=== PATIENT | male | born 1940 | race Caucasian/White ===

== ENCOUNTER 2016-05-15 12:33 | Emergency (ER) | payer OTHER ==
[2016-05-15 13:50] LABS: BASOPHILS % 0.3 (0.0-1.5); EOSINOPHILS % 0.9 % (0.0-6.8); LYMPHOCYTES # 0.4 # k/uL (0.6-4.0); MEAN CORPUSCULAR HEMOGLOBIN 31.7 pg (28.0-34.0); MONOCYTES # 0.6 # k/uL (0.0-0.9); MONOCYTES % 6.3 % (0.0-11.0); NEUTROPHILS # 7.6 # k/uL (1.4-7.7)
[2016-05-15 14:47] LABS: APPEARANCE,URINE Clear (CLEAR); COLOR,URINE Yellow (YELLOW); OCCULT BLOOD,URINE Negative (NEGATIVE); PH URINE 6.5 (5.0 - 8.0); UROBILINOGEN URINE 0.2 Eu (0.2-1.0)
[2016-05-15 14:51] LABS: SPERM,URINE PRESENT (NEGATIVE)
[2016-05-15] MEDS ORDERED: 0.9 % SODIUM CHLORIDE 1,000 ML IV SCH (15:00)
[2016-05-15] MEDS ORDERED: 0.9 % SODIUM CHLORIDE 1,000 ML IV ONE (15:03)
[2016-05-15 16:37] VITALS: BP 144/86
--- NOTE | 2016-05-16 00:26 | Diagnostic Imaging Report ---
[facility] [address] [facility].[address] [address] ~ ~ ~ ~ Report Submission Date: May 15, 2016 2:14:22 PM PORTFOLIO SPECIALIST Patient ~ Study Name: KRISTAL ROUSSEAU ~ Date: May 15, 2016 1:49:26 PM PORTFOLIO SPECIALIST ~ Modality Type: CR Gender: M ~ Description: CHEST : 39 ~ Institution: [facility] Physician: LENIN BLANTON ~ ~ ~ ~ Chest - one-view Clinical history: ~Weakness about 3 days. Findings: ~Examination of the chest in single portable AP view 05/15/2016 1349 hours with comparison to examination of 08/20/2014 demonstrates the lungs to be clear. ~Cardiac silhouette is prominent and the aorta is atherosclerotic. ~ Monitor leads superimpose the chest. Impression: 1. ~Cardiomegaly and aortic atherosclerosis. 2. ~No active disease. ~ Electronically signed on May 15, 2016 2:14:22 PM PORTFOLIO SPECIALIST by: Silverio EMANUEL
--- NOTE | 2016-05-16 00:27 | Diagnostic Imaging Report ---
[facility] [address] [facility].[address] [place] [address]. [address] ~ ~ ~ ~ Report Submission Date: May 15, 2016 2:15:42 PM SALES COMPENSATION ANALYST Patient ~ Study Name: KRISTAL ROUSSEAU ~ Date: May 15, 2016 1:41:11 PM SALES COMPENSATION ANALYST ~ Modality Type: CT\SR Gender: M ~ Description: CT BRAIN W/O CONTRAST : 39 ~ Institution: [facility] Physician: LENIN BLANTON ~ ~ ~ ~ Head CT without contrast Clinical history: ~Vertigo and weakness for 3 days. Technique: ~CT examination of the brain is performed in contiguous axial slices without the use of contrast. ~Sagittal and coronal reconstructions are performed by the technologist. Findings: ~The fourth ventricle lies in a normal midline position. ~The ventricles and sulci are prominent secondary to atrophy. ~Chronic ischemic changes are present in the periventricular regions. ~Intracranial atherosclerosis is demonstrated. ~Visualized paranasal sinuses and mastoid air cells are clear. Impression: 1. ~Atrophy and chronic small vessel ischemic changes. 2. ~No acute intracranial changes. ~ Electronically signed on May 15, 2016 2:15:42 PM SALES COMPENSATION ANALYST by: Silverio EMANUEL
--- NOTE | 2016-05-16 05:21 | ED Physician Documentation ---
General Adult - HISTORIAN Historian: patient - HPI Stated Complaint: Not feeling good Chief Complaint: General Adult Additional Information: weakness, falling Onset: days ago (3) Timing: still present Severity: moderate Modifying Factors: recently stopped metoprolol, no help Further Comments: no - ROS CONST: weakness EYES/ENT: none CVS/RESP: none GI/: none MS/SKIN/LYMPH: none NEURO/PSYCH: other (falling) - PAST HX Past History: other (depression, hypertension) Other History: diabetes Type 2, other (cad) Surgeries/Procedures: none Immunizations: UTD Allergies/Adverse Reactions: Allergies Allergy/AdvReac Type Severity Reaction Status Date / Time No Known Drug Allergies Allergy Verified 05/15/16 13:05 Home Medications: Ambulatory Orders Medication Instructions Recorded Azithromycin [Azithromycin] 1 tab PO QDAY 05/15/16 Citalopram Hydrobromide 1 tab PO BID 05/15/16 [Citalopram HBr] Mecobalamin [B-12] 1 tab PO QDAY 05/15/16 - SOCIAL HX Smoking History: non-smoker Alcohol Use: none Drug Use: none - FAMILY HX Family History: No - VITAL SIGNS Vital Signs: Vital Signs Temp Pulse Resp BP Pulse Ox 98.6 F 88 18 144/86 98 05/15/16 12:33 05/15/16 16:34 05/15/16 16:34 05/15/16 16:34 05/15/16 16:34 - REVIEWED ASSESSMENTS Nursing Assessment Reviewed: Yes Vitals Reviewed: Yes Progress - Results/Orders Results/Orders: ct head, cxr, ua, trop, gnp, flu a and b, cmp, cbc, strep, ekg and chem stick ordered - Progress Progress: pt. given 1 liter NS which causes sig. improvement in stremgth and bp Critical Care Note - Critical Care Note Total Time (mins): 0 ED Results Lab/Radiology - Lab Results Lab Results: Lab Results 05/15/16 05/15/16 05/15/16 14:45 14:40 14:05 WBC RBC Hgb Hct MCV MCH MCHC RDW Plt Count Neut % (Auto) Lymph % (Auto) [place] % (Auto) Eos % (Auto) Baso % (Auto) Neut # Lymph # [place] # Eos # Baso # Reactive Lymphs % Reactive Lymphs # Sodium Potassium Chloride Carbon Dioxide BUN Creatinine Estimated Creat Clear Est GFR ( Amer) Est GFR (Non-Af Amer) Glucose Calcium Total Bilirubin AST ALT Alkaline Phosphatase Troponin I NT-Pro-B Natriuret Pep Total Protein Albumin Urine Color Yellow (YELLOW) Urine Appearance Clear (CLEAR) Urine pH 6.5 (5.0 - 8.0) Ur Specific [place] 1.025 (1.010-1.030) Urine Protein 2+ mg/dL H mg/dL (NEGATIVE) Urine Ketones Trace mg/dL mg/dL (NEGATIVE) Urine Occult Blood Negative (NEGATIVE) Urine Nitrite Negative (NEGATIVE) Urine Bilirubin Negative (NEGATIVE) Urine Urobilinogen 0.2 Eu Eu (0.2-1.0) Ur Leukocyte Esterase Negative (NEGATIVE) Urine RBC 0-2 (0-2 HPF) Urine WBC 2-5 (0-5 HPF) Urine Bacteria Few H (NEGATIVE) Urine Sperm Present H (NEGATIVE) Urine Glucose Negative mg/dL mg/dL (NEGATIVE) Influenza Type A Ag Negative (NEGATIVE) Influenza Type B Ag Negative (NEGATIVE) Group A Strep Screen Negative (NEGATIVE) 05/15/16 05/15/16 05/15/16 13:45 13:45 13:45 WBC 8.70 K/ul K/ul (4.00-12.00) RBC 4.16 M/ul M/ul (3.90-5.20) Hgb 13.2 g/dL g/dL (12.0-18.0) Hct 38.9 % % (37.0-53.0) MCV 93.5 fl fl (80.0-100.0) MCH 31.7 pg pg (28.0-34.0) MCHC 33.9 g/dL g/dL (30.0-36.0) RDW 13.0 % % (11.3-14.3) Plt Count 229 K/mm3 K/mm3 (130-400) Neut % (Auto) 86.7 % H % (39.0-79.0) Lymph % (Auto) 4.8 % L % (16.0-50.0) [place] % (Auto) 6.3 % % (0.0-11.0) Eos % (Auto) 0.9 % % (0.0-6.8) Baso % (Auto) 0.3 (0.0-1.5) Neut # 7.6 # k/uL # k/uL (1.4-7.7) Lymph # 0.4 # k/uL L # k/uL (0.6-4.0) [place] # 0.6 # k/uL # k/uL (0.0-0.9) Eos # 0.1 # k/uL # k/uL (0.0-0.6) Baso # 0.0 # k/uL # k/uL (0.0-0.5) Reactive Lymphs % 0.9 % % (0.0-5.0) Reactive Lymphs # 0.1 # k/uL # k/uL (0.0-0.8) Sodium 130 mmol/L L mmol/L (136-145) Potassium 4.9 mmol/L mmol/L (3.5-5.0) Chloride 93 mmol/L L mmol/L (98-110) Carbon Dioxide 27 mmol/L mmol/L (20-32) BUN 29 mg/dL H mg/dL (10-26) Creatinine 1.6 mg/dL H mg/dL (0.4-1.5) Estimated Creat Clear 50 Est GFR ( Amer) 54 L (60 - ) Est GFR (Non-Af Amer) 45 L (60 - ) Glucose 225 mg/dL H mg/dL (70-99) Calcium 9.9 mg/dL mg/dL (8.5-10.5) Total Bilirubin 0.6 mg/dL mg/dL (0.2-1.2) AST 21 U/L U/L (0-41) ALT 18 U/L U/L (0-45) Alkaline Phosphatase 78 U/L U/L (46-116) Troponin I < 0.03 ng/mL ng/mL (0.00-0.06) NT-Pro-B Natriuret Pep 2396.1 pg/mL H pg/mL (15.0-450.0) Total Protein 7.6 g/dL g/dL (6.0-8.5) Albumin 4.5 g/dL g/dL (3.0-5.5) Urine Color Urine Appearance Urine pH Ur Specific [place] Urine Protein Urine Ketones Urine Occult Blood Urine Nitrite Urine Bilirubin Urine Urobilinogen Ur Leukocyte Esterase Urine RBC Urine WBC Urine Bacteria Urine Sperm Urine Glucose Influenza Type A Ag Influenza Type B Ag Group A Strep Screen - Radiology Radiology Impressions: ct brain neg, cxr neg - Orders Orders: ED Orders Category Date Time Status CHEST 1 VIEW [RAD] Routine Exams 05/15/[address] BRAIN W/O CONTRAST Stat Exams 05/15/16 Completed CBC/PLATELET/DIFF Routine Lab 05/15/16 13:45 Completed CMP Routine Lab 05/15/16 13:45 Completed GRP A STREP SCREEN Routine Lab 05/15/16 14:05 Completed INFLUENZA A&B Routine Lab 05/15/16 14:40 Completed NT-proBNP Routine Lab 05/15/16 13:45 Completed THROAT CULTURE Routine Lab 05/15/16 14:05 Received TROPONIN I (cTnI) Routine Lab 05/15/16 13:45 Completed URINALYSIS Routine Lab 05/15/16 14:45 Completed 0.9 % Sodium Chloride [Normal Saline] 1,000 ml Med 05/15/16 15:00 Discontinued IV .Q1H 0.9 % Sodium Chloride [Normal Saline] 1,000 ml Med 05/15/16 15:03 Discontinued IV .STK-MED Chem Sticks Med 05/15/16 14:00 Discontinued 1 each CHEMQ EKG WITH COMPARISON Routine Ther 05/15/16 Ordered General Adult Physical Exam - PHYSICAL EXAM GENERAL APPEARANCE: no distress EENT: eye inspection normal, ENT inspection normal, pharynx normal, no signs of dehydration, MARGO, no nystagmus, TM's nml NECK: normal inspection, thyroid normal, supple RESPIRATORY: no resp distress, chest non-tender, breath sounds normal CVS: reg rate & rhythm, heart sounds normal, equal pulses, no murmur, no gallop , PMI nml, no JVD, no friction rub ABDOMEN: soft, no organomegaly, normal bowel sounds, no abdominal bruit, no distension, non-tender BACK: normal inspection, no CVA tenderness SKIN: warm/dry, normal color EXTREMITIES: non-tender, normal range of motion, no evidence of injury, no edema NEURO: oriented X3, CN's nml as tested, motor nml, sensation nml, mood/affect nml, cognition normal Discharge Clincal Impression: Dehydration Referrals: Abraham Lowery MD [Primary Care Provider] - 2 Days Home Medications: Ambulatory Orders Azithromycin [Azithromycin] 1 tab PO QDAY 05/15/16 Citalopram Hydrobromide [Citalopram HBr] 1 tab PO BID 05/15/16 Mecobalamin [B-12] 1 tab PO QDAY 05/15/16 Comments: discharged with recommendation for increasing fluids Condition: Stable Disposition: 01 HOME, SELF-CARE Decision to Admit: NO Decision Time: 16:25
== END 2016-05-15 16:34 | disposition home or self-care (01) ==
LOC: ED 12:33
DX: E86.0 Dehydration (principal)
CPT/HCPCS: 70450; 71010; 80053; 81002; 83880; 84484; 85025; 87070; 87400; 87880; J7030; 96360; 96361; 99283; S1016

== ENCOUNTER 2016-05-16 12:39 | Emergency (ER) | payer OTHER ==
[2016-05-16] MEDS ORDERED: ASPIRIN 81 MG CHEW TAB PO ONE (12:56)
[2016-05-16] MEDS ORDERED: ATROPINE SULFATE 0.1 MG/ML DISP.SYRIN ONE (12:58)
[2016-05-16] MEDS ORDERED: 0.9 % SODIUM CHLORIDE 1,000 ML IV ONE (12:58)
[2016-05-16 13:15] LABS: BASOPHILS % 0.4 (0.0-1.5); EOSINOPHILS % 2.8 % (0.0-6.8); MEAN CORPUSCULAR HEMOGLOBIN 32.6 pg (28.0-34.0); MONOCYTES # 0.9 # k/uL (0.0-0.9); NEUTROPHILS # 5.3 # k/uL (1.4-7.7)
--- NOTE | 2016-05-16 13:16 | ED Physician Documentation ---
Syncope/Near Syncope - HISTORIAN Historian: patient, friend - HPI Stated Complaint: Syncopal Episodes Chief Complaint: Syncope Location of Injury: head Further Comments: yes (75 year old male patient presents with complaints of "passing out", states he fell twice yesterday and twice this morning. Patient was seen in ER yesterday for complaints of weakness and not feeling well. Reports taking a 25mg tab of metoprolol this morning. Patient reports changes in his metoprolol doses over the past few months. He is unsure what he is suppose to take. Patient denies SOB or chest pain) - ROS CONST: recent illness EYES/ENT: none GI/: denies: diarrhea, black stools, problems urinating - PAST HX Cardiac Disease: CAD, A-Fib (cardioversion August 2013) PE Risk Factors: hypertension Other History: diabetes Type 2 Allergies/Adverse Reactions: Allergies Allergy/AdvReac Type Severity Reaction Status Date / Time No Known Drug Allergies Allergy Verified 05/15/16 13:05 Home Medications: Ambulatory Orders Medication Instructions Recorded Azithromycin [Azithromycin] 1 tab PO QDAY 05/15/16 Citalopram Hydrobromide 1 tab PO BID 05/15/16 [Citalopram HBr] Mecobalamin [B-12] 1 tab PO QDAY 05/15/16 - SOCIAL HX Smoking History: non-smoker - FAMILY HX Family History: denies: none - VITAL SIGNS Vital Signs: Vital Signs Temp Pulse Resp BP Pulse Ox 98 F 102 H 24 130/74 99 05/16/16 12:40 05/16/16 12:55 05/16/16 12:40 05/16/16 12:40 05/16/16 12:55 - REVIEWED ASSESSMENTS Nursing Assessment Reviewed: Yes Vitals Reviewed: Yes Progress - Progress Progress: On arrival - Patient placed on pacing pads, atropine at bedside. No LOC with pauses or bradycardia. No helicopter transport available due to icy weather. Patient transported with pacing pads and atropine. VS stable at transport. - EKG/XRAY/CT EKG: rhythm (ST, 1 degree AV block, rate 102, not acute changes) XRAY: chest (no infiltrate, pulmonary vascular congestion noted, cardiomegaly) - Consult/PCP Time Called: 13:30 (spoke with Mike) Consult/PCP: [address] Savage - Additional EKG/XRAY/Consults EKG #2: rhythm (SB into Junctional vs Afib, no ST changes. ) ED Results Lab/Radiology - Lab Results Lab Results: Lab Results 05/16/16 05/16/16 05/16/16 12:59 12:59 12:59 WBC 7.60 K/ul K/ul (4.00-12.00) RBC 4.34 M/ul M/ul (3.90-5.20) Hgb 14.1 g/dL g/dL (12.0-18.0) Hct 40.6 % % (37.0-53.0) MCV 93.5 fl fl (80.0-100.0) MCH 32.6 pg pg (28.0-34.0) MCHC 34.8 g/dL g/dL (30.0-36.0) RDW 13.0 % % (11.3-14.3) Plt Count 235 K/mm3 K/mm3 (130-400) Neut % (Auto) 70.0 % % (39.0-79.0) Lymph % (Auto) 13.1 % L % (16.0-50.0) [place] % (Auto) 12.0 % H % (0.0-11.0) Eos % (Auto) 2.8 % % (0.0-6.8) Baso % (Auto) 0.4 (0.0-1.5) Neut # 5.3 # k/uL # k/uL (1.4-7.7) Lymph # 1.0 # k/uL # k/uL (0.6-4.0) [place] # 0.9 # k/uL # k/uL (0.0-0.9) Eos # 0.2 # k/uL # k/uL (0.0-0.6) Baso # 0.0 # k/uL # k/uL (0.0-0.5) Reactive Lymphs % 1.7 % % (0.0-5.0) Reactive Lymphs # 0.1 # k/uL # k/uL (0.0-0.8) Sodium 136 mmol/L mmol/L (136-145) Potassium 4.3 mmol/L mmol/L (3.5-5.0) Chloride 106 mmol/L mmol/L (98-110) Carbon Dioxide 24 mmol/L mmol/L (20-32) BUN 29 mg/dL H mg/dL (10-26) Creatinine 1.4 mg/dL mg/dL (0.4-1.5) Estimated Creat Clear 57 Est GFR ( Amer) > 60 (60 - ) Est GFR (Non-Af Amer) 52 L (60 - ) Glucose 180 mg/dL H mg/dL (70-99) Calcium 9.9 mg/dL mg/dL (8.5-10.5) Total Bilirubin 0.6 mg/dL mg/dL (0.2-1.2) AST 26 U/L U/L (0-41) ALT 20 U/L U/L (0-45) Alkaline Phosphatase 79 U/L U/L (46-116) Troponin I 0.02 ng/mL ng/mL (0.00-0.06) Total Protein 7.8 g/dL g/dL (6.0-8.5) Albumin 4.6 g/dL g/dL (3.0-5.5) - Radiology Radiology Impressions: CT brain noncontrast CLINICAL HISTORY: PT FELL, HIT HEAD (Hx) / FALL, HIT HEAD (DICOM Hx) TECHNIQUE: 5 mm contiguous axial images of the brain, noncontrast. FINDINGS: Comparison is made to prior CT head There is no evidence of intracranial mass effect, hemorrhage, or acute hydrocephalus. The lateral ventricles are symmetrical and the 4th ventricle is midline without shift. No acute brain parenchymal changes or extra-axial fluid collections are identified. The posterior fossa contents are within normal limits. There is atrophy and white matter disease, unchanged The calvarium is intact. The visualized sinuses and mastoid air cells are clear. IMPRESSION: No acute intracranial process. - Orders Orders: ED Orders Category Date Time Status Continuous EKG monitoring Q30M Care 05/16/16 12:55 Active Continuous Pulse Oximetry Q30M Care 05/16/16 12:[address] Saline Lock/IV NOW Care 05/16/16 12:55 Completed CHEST 1 VIEW [RAD] Stat Exams 05/16/16 13:[address] BRAIN W/O CONTRAST Stat Exams 05/16/16 Ordered BNP [NT-proBNP] Stat Lab 05/16/16 Ordered CBC/PLATELET/DIFF Stat Lab 05/16/16 12:59 Completed CMP Stat Lab 05/16/16 12:59 Completed TROPONIN I (cTnI) Stat Lab 05/16/16 12:59 Completed 0.9 % Sodium Chloride [Normal Saline] 1,000 ml Med 05/16/16 12:58 Discontinued IV .STK-MED Aspirin Med 05/16/16 12:56 Discontinued 324 mg PO NOW ONE Atropine Sulfate [Atropen] Med 05/16/16 12:58 Discontinued 1 mg .ROUTE .STK-MED ONE Oxygen Daily Oxygen 05/16/16 13:00 Ordered EKG WITH COMPARISON Stat Ther 05/16/16 12:55 Ordered Syncope Physical Exam - Physical Exam General Appearance: moderate distress EENT: nml eye inspection, PERRL, nml ENT inspection, pharynx nml, no CSF leak, other (abrasion to right shinto and right eye, ecchymosis around mouth) Neck/Back: neck supple, non-tender, no carotid bruit CVS: reg rate & rhythm, heart sounds normal, equal pulses, no murmur, no gallop , PMI nml, no JVD, no friction rub, bradycardia, other (tachy/eduardo syndrome; HR down to 35, pauses up to 5 seconds noted. ) Skin: normal color, warm/dry, NR, INT, PAL, DR - Neuro/Psych Higher Functions: alert, oriented x3, no evidence of acute CVA, mood/affect nml Cranial Nerves: nml as tested Cerebellar: nml as tested, nml gait Sensorimotor: nml motor response, nml sensory response, nml reflexes, nml gait Discharge Clincal Impression: Tachy-eduardo syndrome, Bradycardia Home Medications: Ambulatory Orders Azithromycin [Azithromycin] 1 tab PO QDAY 05/15/16 Citalopram Hydrobromide [Citalopram HBr] 1 tab PO BID 05/15/16 Mecobalamin [B-12] 1 tab PO QDAY 05/15/16 Condition: Serious Disposition: 02 XFER SHT-TRM HOSP Decision to Admit: NO Decision Time: 13:48
[2016-05-16 13:23] LABS: eGFR (African) > 60; eGFR (Non-African) 52
[2016-05-16 14:10] VITALS: BP 109/76
--- NOTE | 2016-05-16 17:22 | Diagnostic Imaging Report ---
[facility] [address] [facility].[address] [place] [address]. [address] ~ ~ ~ ~ Report Submission Date: May 16, 2016 1:28:07 PM OFFC SPEC Patient ~ Study Name: KRISTAL ROUSSEAU ~ Date: May 16, 2016 1:06:06 PM OFFC SPEC ~ Modality Type: CT\SR Gender: M ~ Description: CT BRAIN W/O CONTRAST : 39 ~ Institution: [facility] Physician: TIANNA ROBISON ~ ~ ~ ~ CT brain noncontrast CLINICAL HISTORY:~ PT FELL, HIT HEAD (Hx) / FALL, HIT HEAD (DICOM Hx) TECHNIQUE: 5 mm contiguous axial images of the brain, noncontrast. FINDINGS: Comparison is made to prior CT head There is no evidence of intracranial mass effect, hemorrhage, or acute hydrocephalus. The lateral ventricles are symmetrical and the 4th ventricle is midline without shift. No acute brain parenchymal changes or extra-axial fluid collections are identified. The posterior fossa contents are within normal limits. There is atrophy and white matter disease, unchanged The calvarium is intact. The visualized sinuses and mastoid air cells are clear. IMPRESSION: No acute intracranial process. ~ Electronically signed on May 16, 2016 1:28:07 PM OFFC SPEC by: Matt EMANUEL
--- NOTE | 2016-05-16 17:25 | Diagnostic Imaging Report ---
[facility] [address] [facility].[address] [address] ~ ~ ~ ~ Report Submission Date: May 16, 2016 2:07:41 PM COMPRESSED GAS PLANT WORKER Patient ~ Study Name: KRISTAL ROUSSEAU ~ Date: May 16, 2016 1:22:59 PM COMPRESSED GAS PLANT WORKER ~ Modality Type: CR Gender: M ~ Description: CHEST : 39 ~ Institution: [facility] Physician: TIANNA RBOISON ~ ~ ~ ~ Portable view chest Clinical history: Dyspnea Findings: The heart size is mildly enlarged. There is pulmonary venous congestion. Overlying pads limits detail. No pleural effusion pneumothorax. Impression: Development of mild pulmonary venous congestion. ~ Electronically signed on May 16, 2016 2:07:41 PM COMPRESSED GAS PLANT WORKER by: Matt EMANUEL
== END 2016-05-16 14:00 | disposition short-term general hospital (02) ==
LOC: ED 12:39
DX: I49.5 Sick sinus syndrome (principal); S09.90XA Unspecified injury of head, initial encounter; W19.XXXA Unspecified fall, initial encounter; Y93.9 Activity, unspecified; Y99.9 Unspecified external cause status
CPT/HCPCS: 70450; 71010; 80053; 83880; 84484; 85025; J0461; J7030; 96374; 99284; 99285; S1016

== ENCOUNTER 2016-06-08 10:28 | Outpatient (CLI) | payer OTHER ==
--- NOTE | 2016-06-08 15:41 | Diagnostic Imaging Report ---
[facility] [address] [facility].. [address] [address] Report Submission Date: Jun 08, 2016 2:53:45 PM AUXILIARY EQUIPMENT TENDER Patient Study Name: KRISTAL ROUSSEAU Date: Jun 08, 2016 11:10:17 AM AUXILIARY EQUIPMENT TENDER Modality Type: CT\SR Gender: M Description: CT BRAIN W/O CONTRAST : 39 Institution: [facility] Physician: CARRIE CASTRO Head CT without contrast Clinical history: Multiple recent falls. Left frontal injury. Confusion. Technique: CT examination of the brain is performed in contiguous axial slices without the use of contrast. Sagittal and coronal reconstructions are performed by the technologist. Findings: The fourth ventricle lies in a normal midline position. The ventricles and sulci are prominent secondary to atrophy. Chronic ischemic changes are present in the periventricular regions. 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 This measures up to 1.1 cm in thickness on the right and 6 mm in thickness on the left. There is 2-3 mm midline shift to the left. There is no evidence of intraparenchymal hemorrhage. Intracranial atherosclerosis is demonstrated. Fluid is evident in the maxillary sinuses worse on the left consistent with maxillary sinusitis. Impression: 1. Interval development of bilateral subdural fluid collections that appear subacute to old measuring 11 mm in thickness on the right 6 mm on the left with 2-3 mm midline shift. 2. Underlying atrophy. Electronically signed on Jun 08, 2016 2:53:45 PM AUXILIARY EQUIPMENT TENDER by: Silverio San Critical results were phoned to Dr. Lowery at 1452 hours central time Addendum electronically signed by Silverio San on June 08, 2016 2:55:05 PM AUXILIARY EQUIPMENT TENDER MTDTracy
--- NOTE | 2016-06-08 15:42 | Diagnostic Imaging Report ---
[facility] [address] [facility].[address] [address] Report Submission Date: Jun 08, 2016 2:46:33 PM TRIMMING INSPECTOR Patient Study Name: KRISTAL ROUSSEAU Date: Jun 08, 2016 10:48:07 AM TRIMMING INSPECTOR Modality Type: US Gender: M Description: DPLX SCN XTRCRAN ART CMP [place] : 39 Institution: [facility] Physician: CARRIE CASTRO Duplex imaging of the carotids Clinical history: Confusion. Technique: Real time sonography of the carotid and vertebral arteries is performed in transverse and longitudinal views. Doppler interrogation and color flow imaging are additionally used. Findings: There is no significant stenosis evident on the gamble scale images. Doppler waveforms are within normal limits without significant spectral broadening. The internal carotid peak velocities measure 76 cm/sec on the right and 70 cm/sec on the left with internal carotid to common carotid artery ratio of 0.9 on the right and 1.0 on the left. Vertebral arteries demonstrate normal cephalad flow. Incidentally noted is a 2 cm fairly homogeneously hypoechoic nodule in the left lobe of the thyroid. Impression: 1. Bilateral less than 50% internal carotid stenosis. 2. Left thyroid nodule. The degree of carotid stenosis is estimated using the Society of Radiologists in Ultrasound consensus conference of 2003 criteria. Electronically signed on Jun 08, 2016 2:46:33 PM TRIMMING INSPECTOR by: Silverio EMANUEL
== END 2016-06-08 10:30 ==
LOC: RAD 10:28
PROVIDERS: ATTEND Family Medicine
DX: I35.0 Nonrheumatic aortic (valve) stenosis (principal); E04.1 Nontoxic single thyroid nodule
CPT/HCPCS: 70450; 93880